=== PATIENT | male | born 1995 | race African-American/Black ===

== ENCOUNTER 2018-05-13 22:25 | Emergency (ER) | payer OTHER ==
[~2018-05-13] VITALS: Ht 188 cm; Wt 86.6 kg
[~2018-05-13 22:25] MED LIST: FLOVENT HFA 1110 MCG IH; PREDNISONE 20 M20 M1 PO; VENTOLIN HFA INH8 GM IH; ZANTAC 150MG T150 M1 PO
[2018-05-13] MEDS ORDERED: IBUPROFEN 600600 M1 PO (23:23)
[2018-05-13] MEDS ORDERED: NORCO 5-325 TA1 EACH PO (23:23)
[2018-05-13 23:39] VITALS: BP 150/60
== END 2018-05-13 23:40 | disposition home or self-care (01) ==
LOC: ER 22:25
DX: M25.462 Effusion, left knee (principal); M25.562 Pain in left knee; J45.909 Unspecified asthma, uncomplicated

== ENCOUNTER → 2018-05-23 | Outpatient (CLI) | payer OTHER ==
[~2018-05-23] MED LIST changes: +IBUPROFEN 600600 M1 PO; +NORCO 5-325 TA1 EACH PO
== END ==
LOC: MRI 11:32
DX: S83.242A Other tear of medial meniscus, current injury, left knee, initial encounter (principal); M25.062 Hemarthrosis, left knee; X58.XXXA Exposure to other specified factors, initial encounter; Y93.89 Activity, other specified; Y92.89 Other specified places as the place of occurrence of the external cause; Y99.8 Other external cause status

== ENCOUNTER 2018-06-25 05:38 | Inpatient (IN) | payer OTHER ==
[2018-06-25] VITALS (8 sets, daily range): BP systolic 128–136; BP diastolic 51–69
[~2018-06-25] VITALS: Ht 188 cm; Wt 86.2 kg
[2018-06-25 06:52] LABS: HEMATOCRIT 39.4 % (42.0-52.0); HEMOGLOBIN 13.5 gm/dL (14.0-18.0); MCH 31.8 pg (26.0-34.0); MCHC 34.3 g/dL (28.0-37.0); MCV 92.9 fL (80.0-100.0); RBC 4.25 mil/uL (4.50-6.00); RDW 12.9 % (10.5-14.5); WBC 4.2 thou/uL (4.0-11.0)
--- NOTE | 2018-06-25 13:47 | NUR ---
PT TRANSFERED FROM PACU TO 418, A&OX4, IMMOBILIZER, SCD'S NOTED TO LLE. DENIES PAIN AT THIS TIME. DOES HAVE NUMBNESS, PULSES PRESENT, TOES ARE WARM TO TOUCH. STARTED PT ON CL LIQUID DIET WILL ADVANCE TO REG AT DINNER. ORIENTED PT TO ROOM/CALL LIGHT.
--- NOTE | 2018-06-25 16:14 | NUR ---
Pt is a&ox4 and indep prior to admission. Has good family support and f/u care at dc. Pt has a pair of crutches in his car for use at dc. no cm interventions indicated.
[2018-06-26 00:12] VITALS: BP 125/68
--- NOTE | 2018-06-26 04:04 | NUR ---
Assumed care of pt at 1900. Pt post-op. Pain controlled. Immobilizer on left lower extremity. Able to void without any issues. Call light within reach. Will continue to monitor.
[2018-06-26 05:19] VITALS: BP 131/48
--- NOTE | 2018-06-26 06:49 | O ---
[facility] [place] [address] OPERATIVE REPORT Name: ALISON SANTACRUZ [facility] Room #: 418-P [facility] M.R.#: [id number] Admission: 06/25/18 ������������������ Attend Phys: Ben Otero MD Discharge: ������������������ Date of : 97 Report #: [id number] THIS REPORT FOR: //name// CC: Ben Vance Abraham DATE OF SERVICE: 06/25/2018 SERVICE: Orthopedics. FACILITY: [facility]. SURGEON: Ben Otero MD LETTER STAMPING MACHINE OPERATOR: Adriane Bonilla NP INDICATIONS FOR ASSISTANCE: Extremity positioning, graft preparation, suture management and assistance with reconstruction. PREOPERATIVE DIAGNOSES: 1. Left knee anterior cruciate ligament tear, status post prior left knee anterior cruciate ligament reconstruction. 2. Retained orthopedic implant, left tibia. 3. Left knee medial and lateral meniscus tears. 4. Hypertrophic scar, left leg. PROCEDURES: 1. Left knee arthroscopically assisted revision ACL reconstruction with quadriceps tendon autograft. 2. Left knee arthroscopic partial medial and lateral meniscectomies. 3. Left leg scar revision measuring 23 mm in length. 4. Removal of retained orthopedic implant, left tibia via open incision. HISTORY: The patient is a 22-year-old young man with a history of multiple significant knee injuries to his left knee. He originally had an ACL reconstruction with a hamstring tendon autograft with pediatric technique when he was a teenager. This unfortunately re-tore more recently. He was playing basketball in [place] where he had a displaced bucket handle lateral meniscus tear, which was treated with 9 all-inside implants and with a plan for a staged reconstruction. He presented to our clinic with recurrent instability event and evidence of a failed meniscal repair. Risks, benefits, alternatives and indications for surgery were discussed with him and his mother and their questions were all answered. Risks include but not limited to pain, bleeding, infection, injury to nerves or blood vessels, persistent pain despite surgical intervention, failure of any repairs, reconstructions, progression of preexisting chondral injury, stiffness, need for further surgery as well as [address] [address] OPERATIVE REPORT Name: ALISON SANTACRUZ [facility] Room #: 418-[facility] IN ..#: [id number] Admission: 06/25/18 ������������������ Attend Phys: Ben Otero MD Discharge: ������������������ Date of : 97 Report #: [id number] complications related to anesthesia such as stroke, heart attack, pulmonary complications, thromboembolic disease and . His physical examination revealed no evidence of additional ligamentous laxity. It was a purely ACL deficiency. He had a normal posterolateral corner and lateral ligamentous structures on physical examination. He had an MRI, which demonstrated failed ACL reconstruction with medial and lateral meniscus tears. Plans were made for revision ACL reconstruction addressing the meniscal pathology as indicated by the particular injury pattern as well as hardware removal. He had a hypertrophic scar from the previous ACL reconstruction on the tibia and plans were made for scar revision as well. PROCEDURE IN DETAIL: After left lower extremity was correctly identified in the preoperative holding area as the operative extremity, the patient underwent placement of a single shot regional nerve block by Anesthesia. He was then taken to the operating room where general anesthesia was induced without complication. He was padded appropriately. Prophylactic antibiotics were administered at appropriate time. Tourniquet was applied to the left leg. Left lower extremity was then prepped and draped in standard sterile fashion after examination under anesthesia demonstrated positive pivot shift and a positive drawer. He had no external rotation abnormality and he had no varus or valgus laxity. He specifically is somewhat tight in the lateral compartment, which was confirmed at the time of arthroscopy. An Esmarch was used. Tourniquet was inflated to 250 mmHg. The previous incision over the tibia was visualized. There was a widened scar about 12 mm in width and this was excised for an overall length of 23 mm in length x 12 mm of width with a full thickness flap and then dissection was taken down to the tibia where the previous staple was levered out of the bone and then removed and then the scar was repaired at the conclusion of the procedure. A 1 inch incision was then made based off the superior pole of the patella. Dissection was taken down with full thickness skin flaps down to the quadriceps tendon and then a partial thickness 9.5 mm quadriceps tendon autograft was harvested. The donor site was then closed with 0 Vicryl suture in a running locking fashion and then the graft was prepared into a Y-shaped graft with whipstitches, two on the patellar side and then one on each limb on the femoral side. Incision was then made and the scope was placed in the knee. An anteromedial portal was established in a typical fashion. Diagnostic arthroscopy revealed a normal-appearing patellofemoral joint and overall healthy appearing medial compartment. There was a tear of the anterior horn as well as the posterior horn of the medial meniscus. These were both small and were easily treated with debridement with a shaver leaving at least 95% of the meniscal volume still intact. The meniscus was probed posteriorly underneath the posterior horn and it was stable. There was no evidence of any instability here. The PCL was normal. The ACL prior reconstruction was visualized and it was chronically [address] [address] OPERATIVE REPORT Name: ALISON SANTACRUZ III Room #: 418-P [facility] Sanjeev#: [id number] Admission: 06/25/18 ������������������ Attend Phys: Ben Otero MD Discharge: ������������������ Date of : 97 Report #: [id number] torn. There was an empty lateral wall. The leg was placed in a [id number]-[id number] position and there was evidence of a macerated lateral meniscus tear with multiple sutures still visible from the previous meniscal repair. The furthest medial stitch at the lateral meniscus root was intact and the most anterior meniscal implant at the junction just towards the anterior half of the body was still intact, but everything in between was macerated. There was a segmental defect of the meniscus at the popliteal hiatus measuring at least 18 mm in length as well as multiple flap tears at the relevant junctions. Shaver was used to perform a thorough partial meniscectomy of the unstable flap components and then some of the suture material from the previous meniscal repair was removed as well. There was noted to be a deficiency of gapping at the lateral compartment. It was actually a very tight lateral compartment. Further reconstruction is not warranted in this case as there had been concern previously for a possible multi-ligament laxity being the source of the failed ACL reconstruction. 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 This was treated with chondroplasty in a limited fashion. The ACL stump was then resected and the femur and tibia were prepared for the ACL reconstruction. A 9.5 mm Arthrex FlipCutter was used to create a 23 mm socket within the femur and then a 9 mm reamer was used to create a socket within the tibia. The previous graft tissue was thoroughly debrided out of the tibial tunnel. The femoral tunnel was clean in appearance. Then, the quadriceps tendon graft was passed into the knee with a guide wire between the two limbs of the Y-shaped graft allowing for the interference screw to be placed between the two limbs. The graft was securely docked within the femur and then a cortical button was tied over the two labral tape suture whipstitches, which yielded a total of 4 strands and 2 independent knots over the lateral cortex. The knee was taken through range of motion to eliminate creep and then with the knee in extension with a reverse Manny maneuver, the Arthrex 9 x 28 mm BioComposite interference screw was placed within the knee and then the two tails from the whipstitch were placed into the tibia with a 4.75 mm SwiveLock anchor for backup fixation. The pivot shift and the anterior drawer were restored to normal on intraoperative physical examination. Scope was placed back into the knee. Final photographs were taken to confirm that the screw was in an intraosseous position and was not penetrating the joint. The deep layers were then closed with 2-0 Vicryl suture followed by running subcuticular 3-0 Monocryl. The leg scar that had previously been incised for revision was then closed with a multilayered approach. There was a deep 2-0 Vicryl followed by a subcuticular 2-0 Vicryl, then a running 3-0 Monocryl and Steri-Strips to decrease tension in the revision. Sterile dressings were then applied. Hemostasis was achieved when tourniquet was taken down. The compression stocking was applied and then a PolarCare applied as well followed by knee immobilizer. [facility] [address] [place] [address] OPERATIVE REPORT Name: ALISON SANTACRUZ [facility] Room #: 418-P [facility] M.R.#: [id number] Admission: 06/25/18 ������������������ Attend Phys: Ben Otero MD Discharge: ������������������ Date of : 97 Report #: [id number] He will be allowed range of motion as tolerated and weightbearing as tolerated. It will take his recovery slow to his history of multiple injuries. ��������������������������������������������� <ELECTRONICALLY SIGNED> ���������������������������������������� By: Ben Otero MD ��������������������������������������������� 06/26/18 [id number] Ben Otero MD /nt
[2018-06-26 07:35] VITALS: BP 135/72
[2018-06-26 14:35] VITALS: BP 135/72
--- NOTE | 2018-06-26 15:45 | NUR ---
Assessment completed.vss.Meds given as ordered and well tolerated.Pt ambulated in hallways with therapist.Good endurance noted.Dr Yung rounded on pt and dc order noted.Dc summary compiled and reviewed with pt and family.Saline lock dc'd and pt dc home in at 1545 accompanied by family.
== END 2018-06-26 15:45 | disposition home or self-care (01) | DRG 489 ==
LOC: OR 05:38 → TBA 05:38 → 4E 05:38 → OR 09:32 → 4E 11:20 → OR 11:21 → ENTRNSPT 06-26 15:29 → EDTRNSPTSTS 06-26 15:33 → 4E 06-26 15:45
PROVIDERS: ADMIT Orthopaedic Surgery Sports Medicine
DX: S83.242A Other tear of medial meniscus, current injury, left knee, initial encounter (principal); L91.0 Hypertrophic scar; F17.210 Nicotine dependence, cigarettes, uncomplicated; S83.282A Other tear of lateral meniscus, current injury, left knee, initial encounter; X58.XXXA Exposure to other specified factors, initial encounter; Y93.89 Activity, other specified; Y92.89 Other specified places as the place of occurrence of the external cause; Y99.8 Other external cause status
CPT/HCPCS: 10084; 10783; 50010; 50101; 50172; 50386; 50405; 51038; 51320; 51331; 52001; 52282; 52313; 53337; 54170; 55430; 56524; 56527; 57103; 62110; 62900; 65060; 70005

== ENCOUNTER → 2018-08-06 | Outpatient (CLI) | payer OTHER | LOC: HYPER 08-01 14:01 | DX: T81.31XD Disruption of external operation (surgical) wound, not elsewhere classified, subsequent encounter (principal); L91.0 Hypertrophic scar; M23.202 Derangement of unspecified lateral meniscus due to old tear or injury, unspecified knee; M23.92 Unspecified internal derangement of left knee; M25.562 Pain in left knee; M23.52 Chronic instability of knee, left knee; Z79.82 Long term (current) use of aspirin; Z72.0 Tobacco use; Z98.890 Other specified postprocedural states; Z96.7 Presence of other bone and tendon implants; Y83.8 Other surgical procedures as the cause of abnormal reaction of the patient, or of later complication, without mention of misadventure at the time of the procedure ==

== ENCOUNTER → 2018-08-13 | Outpatient (CLI) | payer OTHER | LOC: HYPER 06:42 | DX: T81.31XD Disruption of external operation (surgical) wound, not elsewhere classified, subsequent encounter (principal); L91.0 Hypertrophic scar; M23.202 Derangement of unspecified lateral meniscus due to old tear or injury, unspecified knee; M23.92 Unspecified internal derangement of left knee; M25.562 Pain in left knee; M76.51 Patellar tendinitis, right knee; M23.52 Chronic instability of knee, left knee; Z79.82 Long term (current) use of aspirin; Z72.0 Tobacco use; Z98.890 Other specified postprocedural states; Z96.7 Presence of other bone and tendon implants; Y83.8 Other surgical procedures as the cause of abnormal reaction of the patient, or of later complication, without mention of misadventure at the time of the procedure ==

== ENCOUNTER 2018-09-30 08:56 | Inpatient (IN) | payer OTHER ==
[~2018-09-30] VITALS: Ht 188 cm; Wt 90.3 kg
[2018-09-30] VITALS (7 sets, daily range): BP systolic 111–126; BP diastolic 56–70
[2018-09-30 09:36] LABS: URINE BILIRUBIN NEGATIVE (Negative); URINE BLOOD NEGATIVE (Negative); URINE CLARITY CLEAR; URINE COLOR YELLOW; URINE GLUCOSE-RANDOM* NEGATIVE (Negative); URINE KETONES NEGATIVE (Negative); URINE LEUKOCYTES NEGATIVE (Negative); URINE NITRITE NEGATIVE (Negative); URINE PROTEIN (DIPSTICK) NEGATIVE (Negative); URINE SPECIFIC GRAVITY 1.015 (1.005-1.035); URINE UROBILINOGEN 0.2 E.U./dl (0.2-1.0)
[2018-09-30 09:43] LABS: ABSOLUTE NEUTROPHILS 5.2 thou/uL (1.4-8.2); BASOPHILS 0.4 % (0.0-2.0); EOSINOPHILS 1.1 % (0.0-3.0); HEMATOCRIT 39.8 % (42.0-52.0); HEMOGLOBIN 13.6 gm/dL (14.0-18.0); MCH 32.1 pg (26.0-34.0); MCHC 34.2 g/dL (28.0-37.0); MCV 93.7 fL (80.0-100.0); MONOCYTES 9.5 % (1.0-8.0); PLATELET COUNT 188 thou/uL (150-400); RBC 4.25 mil/uL (4.50-6.00); RDW 13.4 % (10.5-14.5); WBC 6.9 thou/uL (4.0-11.0)
[2018-09-30 09:58] LABS: CALCIUM 9.6 mg/dL (8.5-10.1); CREATININE 1.1 mg/dL (0.7-1.3); POTASSIUM 4.1 mmol/L (3.5-5.1)
[2018-09-30 10:03] LABS: ALBUMIN 4.6 g/dL (3.4-5.0); TOTAL BILIRUBIN 1.3 mg/dL (<0.1-1.0)
--- NOTE | 2018-09-30 11:49 | NUR ---
PT. UPDATED TO NEED FOR ADMISSION. PT. VERBALIZES UNDERSTANDING.
--- NOTE | 2018-09-30 17:42 | NUR ---
PATIENT ADMITTED FROM ER, REPORT RECEIVED FROM BELÉN/ADMITTING NURSE. PATIENT ALERT AND ORIENTED X 4. PATIENT UP AD NAIMA. C/O MILD PAIN TO LOWER ABDOMEN, BUT REFUSED PAIN MEDS THIS SHIFT. PATIENT HAS LEFT AC IV IN PLACE WITH NS GOING CONTINOUS. DR GARDNER HERE TO SEE PATIENT, IV ANTIBIOTICS ORDERED. PATIENT REFUSED SCD'S AT THIS TIME. WILL CONTINUE TO MONITOR.
[2018-10-01 04:20] VITALS: BP 101/53
[2018-10-01 06:19] LABS: CALCIUM 8.3 mg/dL (8.5-10.1); CREATININE 1.1 mg/dL (0.7-1.3); MAGNESIUM 1.6 mg/dL (1.8-2.4)
--- NOTE | 2018-10-01 06:24 | NUR ---
Assumed pt care at 1900. A/OX4,c/o generalized pain allover medicated with Fentanyl with relief reported at HS declined further pain meds during the night. IVF infusing via LAC without problems. Resting quietly in bed at this time. Call light within reach.
[2018-10-01 07:33] VITALS: BP 126/68
--- NOTE | 2018-10-01 10:55 | NUR ---
Chart reviewd and case discussed with the care team. Hand Shoe Cutter visited with the pt at bedside. He is a&ox 4 and lives with his parents. He works and has recovered from an ACL surgery in the recent past. He has health ins coverage through his mother. No dc need indicated at this time. Cm role introduced should dc needs arise.
[2018-10-01 15:48] VITALS: BP 125/73
--- NOTE | 2018-10-01 16:00 | NUR ---
PT A&OX4, UP AD NAIMA. IV INTACT IN L AC INFUSING NS@150/HR. FAMILY MEMBERS AT BEDSIDE. DENIES NEED FOR PAIN MED THROUGHOUT THE DAY. WILL CONT POC.
[2018-10-01 21:16] VITALS: BP 126/77
[2018-10-02 04:00] VITALS: BP 107/61
[2018-10-02 06:13] LABS: CALCIUM 8.5 mg/dL (8.5-10.1); CREATININE 1.1 mg/dL (0.7-1.3); POTASSIUM 4.3 mmol/L (3.5-5.1)
--- NOTE | 2018-10-02 07:52 | NUR ---
PT UP ADLIB IN ROOM.DENIED PAIN,STATED THAT PAIN WAS RESOLVING.PT WALKED ROUND THE UNIT AT HS.IV SITE INFILTRATED THIS AM, PT REFUSED IT TO BE REPLACED.PT STATED THAT HE WANTS TO TALK TO THE PHYSICIAN FIRST BEFORE THE IT CAN BE REPLACED.REPORT TO AM NURSE TO FOLLOW UP ON.
[2018-10-02 08:10] VITALS: BP 124/75
--- NOTE | 2018-10-02 11:03 | NUR ---
CONSULTED TO PLACE A PIV, PATIENT FOREARM VEINS ARE PINPOINT. DISCUSSED MIDLINE PLACEMENT WITH THE PATIENT AND MOTHER AND VERBAL CONSENT OBTAINED. THE LEFT UPPER ARM BASILIC WAS WIDLEY PATENT. A #4F POWER INJECTABLE MIDLINE WAS PLACED PER HOSPITAL POLICY. LINE WAS TRIMMED TO 15CM AND ADVANCED WITHOUT DIFFICULTY. +BR AND BRISK FLUSH. LINE SECURED AND RELEASED FOR USE
--- NOTE | 2018-10-02 16:23 | NUR ---
Assumed pt care at 7am.Pt in bed appeared to be depressed and withdnsrawn. Assessment completed.vss.Pt wanted to avis to Dr prior to piv replacement. Dr Thomas rounded on pt and new piv placed by iv team later this am. 1 Liter of normal saline given bolus prior to maintenance ivf.Pt family here, updates given.Medicated pt with fentanyl ivp with relief.Will continue to monitor.
[2018-10-02 16:45] VITALS: BP 130/72
[2018-10-02 19:55] VITALS: BP 132/70
[2018-10-03 04:31] VITALS: BP 138/74
[2018-10-03 07:51] LABS: POTASSIUM 3.8 mmol/L (3.5-5.1)
[2018-10-03 08:30] VITALS: BP 145/75
[2018-10-03 16:40] VITALS: BP 135/63
--- NOTE | 2018-10-03 19:32 | NUR ---
Pt in and out of bed to the bathroom and chair today.Assessment completed. vss.Cpk level better today but still high.Dr Thomas aware and order noted. Pt family here,updates given.Medicated pt with tylenol for headache with relief.Pt has good appetite.Report off to noc rn.Will continue to monitor.
[2018-10-03 22:20] VITALS: BP 143/46
--- NOTE | 2018-10-04 02:47 | NUR ---
PATIENT ALERT AND ORIENTED X4. UP ADLIB TO BATHROOM. IVF INFUSING W/O COMPLICATION TO LEFT MIDLINE. PATIENT DENIES PAIN. COOPERATIVE WITH CARE. RESTING QUIETLY. WILL MONITOR.
[2018-10-04 03:25] VITALS: BP 136/74
--- NOTE | 2018-10-04 03:59 | NUR ---
PATIENT WILL POSSIBLY DISCHARGE TODAY PENDING CPK LEVEL. NO PAIN DURING THE NIGHT. PATIENT C/O EYES ITCHING - RUBING CAUSED REDNESS AND SLIGHT PUFFINESS OF HIS EYELIDS. STATES THAT THIS IS NEW. PATIENT DOES NOT BELIEVE THIS IS DRY EYE BECAUSE HIS EYES WATER AT TIMES. THIS NURSE LENORA AM LABS FROM MIDLINE W/O DIFFICULTY. WILL MONITOR.
[2018-10-04 04:48] LABS: CALCIUM 8.5 mg/dL (8.5-10.1); CREATININE 1.1 mg/dL (0.7-1.3); MAGNESIUM 1.9 mg/dL (1.8-2.4); POTASSIUM 3.6 mmol/L (3.5-5.1)
[2018-10-04 08:32] VITALS: BP 132/77
--- NOTE | 2018-10-04 11:51 | NUR ---
ASSUMED CARE OF PT AT 0700. ASSESSMENT CHARTED. A&O,X4. DENIES PAIN. STATES WANTING TO GO HOME TODAY. C/O BILATERAL EYES RED, ITCHING, WATERING, IRRITATED. PAPERHANGER CONTRACTOR AWARE AND PHYSICIAN NOTIFIED, WAITING FOR NEW EYE DROP ORDERS. PT UP AD NAIMA. FRIEND AT BEDSIDE NOW. PT SEEMS ANXIOUS ABOUT GOING HOME, AWARE OF ELEVATED CK LEVELS AND POSSIBLE D/C TOMORROW. WILL CONTINUE TO MONITOR UNTIL EOS.
[2018-10-04 17:02] VITALS: BP 148/95
[2018-10-04 20:25] VITALS: BP 142/89
--- NOTE | 2018-10-05 05:10 | NUR ---
ASSUMED CARE AT 1900, ASSESSMENT AND VS COMPLETED. PT DENIED PAIN, NAUSEA, OR SOB. REPORTS EYES STILL BOTHERING HIM SLIGHTLY--ITCHING AND SWOLLEN FEELING; GIVEN EYE DROPS AT HS. IV FLUIDS INFUSING OVERNIGHT. EXCELLENT URINARY OUTPUT, LIGHT YELLOW IN COLOR. POSSIBLE D/C HOME TODAY. NO OTHER CONCERNS, WILL CONTINUE TO MONITOR.
[2018-10-05 05:34] VITALS: BP 134/60
[2018-10-05 06:07] LABS: HEMATOCRIT 33.2 % (42.0-52.0); HEMOGLOBIN 11.6 gm/dL (14.0-18.0); MCH 32.6 pg (26.0-34.0); MCHC 34.9 g/dL (28.0-37.0); MCV 93.4 fL (80.0-100.0); RBC 3.55 mil/uL (4.50-6.00); RDW 13.4 % (10.5-14.5); WBC 4.2 thou/uL (4.0-11.0)
[2018-10-05 06:29] LABS: ALBUMIN 3.4 g/dL (3.4-5.0); CALCIUM 8.7 mg/dL (8.5-10.1); CREATININE 0.9 mg/dL (0.7-1.3); MAGNESIUM 1.7 mg/dL (1.8-2.4); POTASSIUM 3.7 mmol/L (3.5-5.1); TOTAL BILIRUBIN 0.9 mg/dL (<0.1-1.0); TOTAL PROTEIN 6.3 g/dL (6.4-8.2)
[2018-10-05 08:10] VITALS: BP 140/75
[2018-10-05] MEDS ORDERED: CORTISPORIN OTI10 ML OTIC (10:43)
[2018-10-05 10:49] VITALS: BP 140/75
[2018-10-05] MEDS ORDERED: NEOMYCIN-POLY-7.5 ML OPHTHALMIC (11:13)
--- NOTE | 2018-10-05 11:58 | NUR ---
ASSUMED CARE OF PT AT 0700. ASSESSMENT CHARTED. A&O,X4. DENIES PAIN. INQUIRING ABOUT GOING HOME TODAY. C/O BILATERAL EYES RED, DRY, WATERING - EYE DROPS GIVEN ORDERED. PHYSICIAN NOTIFIED. NEW DISCHARGE ORDERS. NEW EYE DROP SCRIPT AND CARENOTES GIVEN. D/C INFORMATION GIVEN BEDSIDE TO PT AND S.O. STATES NO QUESTIONS OR CONCERNS. LEFT UPPER ARM MIDLINE REMOVED, NO BLEEDING NOTED, TEGADERM AND GUAZE IN PLACE. BELONGINGS GATHERED. PT REFUSED WHEELCHAIR ESCORT. PT AND S.O. ESCORTED OUT BY THIS RN AT 11:55. NO PROBLEMS NOTED.
== END 2018-10-05 12:04 | disposition home or self-care (01) | DRG 558 ==
LOC: ER 08:56 → EROBS 10:48 → 4E 10:48
PROVIDERS: Emergency Medicine; Nurse Practitioner; Nurse Practitioner Family; ADMIT Internal Medicine
DX: M62.82 Rhabdomyolysis (principal); J45.909 Unspecified asthma, uncomplicated; D64.9 Anemia, unspecified; T67.5XXA Heat exhaustion, unspecified, initial encounter; H10.9 Unspecified conjunctivitis; X58.XXXA Exposure to other specified factors, initial encounter; Y93.89 Activity, other specified; Z83.79 Family history of other diseases of the digestive system; Y92.89 Other specified places as the place of occurrence of the external cause; Y99.8 Other external cause status
CPT/HCPCS: 10084; 27000